=== PATIENT | female | born 1965 | race Caucasian/White ===

== ENCOUNTER 2016-08-16 16:22 | Emergency (ER) | payer OTHER ==
[2016-08-16 16:27] VITALS: BP 128/70; BMI 24.4
--- NOTE | 2016-08-16 16:58 | ED.ABDFE ---
HPI - Time seen Time seen: 16:50 - PCP Primary Care Physician: FEDERICO - Complaint Chief Complaint:: PT. C/O RLQ PAIN AND FEVER X 5 DAYS. PT. WAS SEEN AT [facility] LAST NIGHT FOR SAME C/O AND WAS DIAGNOSED WITH A UTI AND OVARIAN CYST. Patient has not gotten medication prescribed - Source History Provided: Patient - Mode of arrival Mode of Arrival: Ambulatory - Timing Onset of Chief Complaint: 08/11/16 PMH - PMH Past Medical History: Yes Past Medical History: Kidney Stones Past Surgical History: Yes Surgical History: Ortho Surgery - Family History History of Family Medical Conditions: No - Social History Does patient currently use any type of tobacco product: Yes Have you used tobacco products in the last 12 months: Yes Type of Tobacco Use: Cigarettes Does any household member use tobacco: No Alcohol Use: None Do you use any recreational Drugs:: No Lives With: Alone Lives Where: Home - infectious screening In the last 2 months have you had wt loss of >10#?: NO Have you had fever, night sweats or hemotysis?: No Have you traveled outside the country in the last 6 months?: No Isolation: Standard ROS - Review of Systems Eyes: No Symptoms Reported ENTM: No Symptoms Reported Respiratoy: No Symptoms Reported Cardiovascular: No Symptoms Reported Gastrointestinal/Abdominal: Abdominal Pain Genitourinary: No Symptoms Reported, See HPI Neurological: No Symptoms Reported Musculoskeletal: No Symptoms Reported Integumentary: No Symptoms Reported Hematologic/Lymphatic: No Symptoms Reported Endocrine: No Symptoms Reported Psychiatric: No Symptoms Reported All Other Systems: Reviewed and Negative PE - Vital Signs Vitals: Temperature 97.8 F Pulse Rate 85 Respiratory Rate 18 Blood Pressure 128/70 O2 Sat by Pulse Oximetry 98 - General Limitations: No Limitations General Appearance: Alert, In No Apparent Distress - Head Head Exam: Normal Inspection, Atraumatic - Eyes Eye exam: Normal Appearance, PERRL, EOMI - ENT ENT Exam: Normal Exam - Neck Neck Exam: Normal Inspection, Full ROM - Chest Chest Inspection: Normal Inspection - Respiratory Respiratory Exam: Normal Lung Sounds Bilat Respiratory Exam: Bilateral Clear to Auscultation - Cardiovascular Cardiovascular Exam: Regular Rate, Normal Rhythm - Abdominal Exam Abdominal Exam: Normal Inspection, Tenderness (RLQ) Abdominal Tenderness: Suprapubic (pain) - Rectal Rectal Exam: Deferred - Back Back Exam: Normal Inspection, Tenderness, (R) CVA Tenderness - Extremeties Extremities Exam: Normal Inspection - External Exam: Female: Normal External Exam : Speculum Exam (Female): Normal Speculum Exam : Bimanual Exam (female): Normal Bimanual exam - Neurologic Neurological Exam: Alert, Oriented X3, CN II-XII Intact - Psychiatric Psychiatric Exam: Normal Affect - Skin Skin Exam: Warm, Dry, Intact ROR - Labs Reviewed Laboratory Results Reviewed?: Yes (UA:wbc 25-30, Rbc: 10-15, Leuk 3+) Laboratory: Specimen Type Clean catch urine 08/16/16 17:02 Urine Color Yellow (YELLOW) 08/16/16 17:02 Urine Appearance Hazy (CLEAR) 08/16/16 17:02 Urine pH 6.0 (5.0 - 8.0) 08/16/16 17:02 Ur Specific [place] 1.020 (1.000-1.030) 08/16/16 17:02 Urine Protein 3+ (NEGATIVE) 08/16/16 17:02 Urine Glucose (UA) Negative (NEGATIVE) 08/16/16 17:02 Urine Ketones Negative (NEGATIVE) 08/16/16 17:02 Urine Occult Blood 2+ (NEGATIVE) 08/16/16 17:02 Urine Nitrite Negative (NEGATIVE) 08/16/16 17:02 Urine Bilirubin Negative (NEGATIVE) 08/16/16 17:02 Urine Urobilinogen 2+ (NORMAL) 08/16/16 17:02 Ur Leukocyte Esterase 3+ (NEGATIVE) 08/16/16 17:02 Urine RBC 10-15 /HPF (NEGATIVE) 08/16/16 17:02 Urine WBC 25-30 /HPF (NEGATIVE) 08/16/16 17:02 Ur Squamous Epith Cells Rare /HPF (NEGATIVE) 08/16/16 17:02 Urine Bacteria 1+ /HPF (NEGATIVE) 08/16/16 17:02 Ur Culture Indicated? Yes/culture set up 08/16/16 17:02 - Diagnosis Discharge Problem: UTI (urinary tract infection) Qualifiers: Urinary tract infection type: acute cystitis Hematuria presence: with hematuria Qualified Code(s): N30.01 - Acute cystitis with hematuria - Discharge Plan Condition: Stable - Follow ups/Referrals Follow ups/Referrals: NFD,None [Primary Care Provider] - 3 days - Instructions
[2016-08-16 17:08] LABS: BILIRUBIN,URINE NEGATIVE (NEGATIVE); BLOOD/HEMOGLOBIN,URINE 2+ (NEGATIVE); GLUCOSE, URINE NEGATIVE (NEGATIVE); KETONES,URINE NEGATIVE (NEGATIVE); LEUKOCYTE ESTERASE ,URINE 3+ (NEGATIVE); NITRITES,URINE NEGATIVE (NEGATIVE); PROTEIN,URINE 3+ (NEGATIVE); UROBILINOGEN,URINE 2+ (NORMAL)
[2016-08-16 17:24] LABS: APPEARANCE,URINE HAZY (CLEAR); COLOR,URINE YELLOW (YELLOW)
[2016-08-16 17:25] LABS: BACTERIA,URINE 1+ /HPF (NEGATIVE); SQUAMOUS EPITHELIAL CELL,UR RARE /HPF (NEGATIVE)
[2016-08-16] MEDS ORDERED: CIPRO IV 400 MG PREMIX* 400 MG/200 ML IV.SOLN. IV ONE ×2 (18:10→18:12)
[2016-08-16] MEDS ORDERED: TORADOL 30 MG VIAL IVP ONE (18:12)
[2016-08-16] MEDS ORDERED: TORADOL 30 MG VIAL ONE (18:31)
[2016-08-16 18:58] LABS: ALANINE AMINOTRANSFERASE 27 Units/L (12-78); ALBUMIN 2.6 g/dL (3.4-5.0); ALKALINE PHOSPHATASE 91 Units/L (46-116); ASPARTATE AMINO TRANSFERASE 14 Units/L (15-37); BLOOD UREA NITROGEN 10 mg/dL (7-18); CALCIUM 8.6 mg/dL (8.5-10.1); CARBON DIOXIDE 26.7 mmol/L (21-32); CHLORIDE 107 mmol/L (98-107); COR CA(FOR HYPOALB) 9.7 mg/dL (8.5-10.1); CREATININE 0.85 mg/dL (0.55-1.02); GLUCOSE 97 mg/dL (65-99); SODIUM 142 mmol/L (136-145); eGFR BLACK RACES > 60 (>60); eGFR NON BLACK RACES > 60 (>60)
[2016-08-16 19:15] LABS: BASOPHILS % (AUTO) 0.6 % (0.2-1.0); EOSINOPHILS # (AUTO) 0.2 x10^3/uL (0.0-0.2); EOSINOPHILS % (AUTO) 3.2 % (0.9-2.9); HEMATOCRIT 31.2 % (36.0-47.0); HEMOGLOBIN 10.8 g/dL (12.0-16.0); LYMPHOCYTES # (AUTO) 1.4 X10^3/uL (1.3-2.9); LYMPHOCYTES % (AUTO) 19.6 % (21.0-51.0); MEAN CORPUSCULAR HEMOGLOBIN 30.3 pg (27.0-34.0); MEAN CORPUSCULAR HGB CONC 34.7 g/dL (33.0-35.0); MEAN CORPUSCULAR VOLUME 87.4 fL (80.0-100.0); MEAN PLATELET VOLUME 7.3 fL (7.4-11.0); MONOCYTES # (AUTO) 0.4 x10^3/uL (0.3-0.8); MONOCYTES % (AUTO) 5.6 % (0.0-13.0); NEUTROPHILS # (AUTO) 5.1 x10^3/uL (2.2-4.8); PLATELET COUNT 165 X10^3/uL (150.0-450.0); RED BLOOD COUNT 3.56 X10^6/uL (3.5-5.4); WHITE BLOOD COUNT 7.1 X10^3/uL (3.6-10.0)
== END 2016-08-16 19:31 | disposition home or self-care (01) ==
LOC: ER 16:32
DX: N30.01 Acute cystitis with hematuria (principal)
CPT/HCPCS: 36415; 80053; 81001; 85025; 86140; 87086; 96365; 96374; 96375; 99282; 99283; A4222; J0744; J1885

== ENCOUNTER 2016-10-23 14:36 | Emergency (ER) | payer OTHER ==
[2016-10-23 14:42] VITALS: BMI 25.7
[2016-10-23] MEDS ORDERED: NS 1000 ML 1,000 ML ONE (15:05)
[2016-10-23] MEDS ORDERED: TORADOL 30 MG VIAL ONE (15:10)
--- NOTE | 2016-10-23 15:10 | DR.GENAD ---
HPI - PCP Primary Care Physician: LUIS M - Complaint/Symptoms Chief Complaint:: PT C/O FEVER, BODY ACHES, AND C/C/C. PT STATES HER SYMPTOMS STARTED YESTERDAY. PT STATES HER FEVER HAS BEEN UP TO 103. PT ALSO STATES HER KIDNEYS HAVE BEEN ACTING UP. Self Treatment fo Chief Complaint: MOTRIN 30 MINS AGO, ASA 1 HOUR AGO - Source History Provided: Patient - Mode of Arrival Mode of Arrival: Ambulatory - Timing Onset of Chief Complaint: 10/22/16 PMH - PMH Past Medical History: Yes Past Medical History: Kidney Stones Past Surgical History: Yes Surgical History: Ortho Surgery Past Surgical History Comment: NECK, SHOULDER - Family History History of Family Medical Conditions: No - Social History Does patient currently use any type of tobacco product: Yes Have you used tobacco products in the last 12 months: Yes Type of Tobacco Use: Cigarettes Does any household member use tobacco: Yes Alcohol Use: None Do you use any recreational Drugs:: No Lives With: Family Lives Where: Home - infectious screening In the last 2 months have you had wt loss of >10#?: NO Have you had fever, night sweats or hemotysis?: No Have you traveled outside the country in the last 6 months?: No Isolation: Standard ROS - Review of Systems Constitutional: No Symptoms Reported Eyes: No Symptoms Reported ENTM: No Symptoms Reported Respiratoy: No Symptoms Reported Cardiovascular: No Symptoms Reported Gastrointestinal/Abdominal: No Symptoms Reported Genitourinary: No Symptoms Reported Neurological: No Symptoms Reported Musculoskeletal: No Symptoms Reported Integumentary: No Symptoms Reported Hematologic/Lymphatic: No Symptoms Reported Endocrine: No Symptoms Reported Psychiatric: No Symptoms Reported PE - Vital Signs Vitals: Temperature 101.7 F Pulse Rate [Right Radial] 91 Pulse Rate 111 Respiratory Rate 20 Blood Pressure [Left Arm] 140/73 Blood Pressure 153/91 O2 Sat by Pulse Oximetry 97 - General General Appearance: Alert, In No Apparent Distress, Appears Intoxicated - Head Head Exam: Normal Inspection, Atraumatic - Eyes Eye exam: Normal Appearance, PERRL, EOMI - ENT ENT Exam: Normal Exam External Ear Exam: Normal External Inspection TM/Canal Exam: Bilateral Normal Nose Exam: Normal Nose Exam Mouth Exam: Normal Inspection Throat Exam: Normal Inspection, Tonsillar Erythema - Neck Neck Exam: Normal Inspection, Full ROM - Chest Chest Inspection: Normal Inspection - Respiratory Respiratory Exam: Normal Lung Sounds Bilat Respiratory Exam: Bilateral Clear to Auscultation - Cardiovascular Cardiovascular Exam: Regular Rate, Normal Rhythm - Abdominal Exam Abdominal Exam: Normal Inspection, Normal Bowel Sounds Abdominal Tenderness: negative: RUQ, RLQ, LUQ, LLQ, Epigastrium, Suprapubic, Diffuse, Mild, Moderate, Severe, Other - Extremities Extremities Exam: Normal Inspection, Full ROM - Back Back Exam: Normal Inspection - Neurologic Neurological Exam: Alert, Oriented X3, CN II-XII Intact - Psychiatric Psychiatric Exam: Normal Affect, Normal Mood - Skin Skin Exam: Warm, Dry, Intact Course - Treatment Treatment: Cipro 400mg IV, NS - Reevaluation 1st: Improved ROR - Labs Reviewed Laboratory Results Reviewed?: Yes (UA: Nitrite positive, Leukocyte esterace 3+, WBC 30--40) Result Diagrams: 10/23/16 15:21 10/23/16 15:21 Laboratory: WBC 7.0 X10^3/uL (3.6-10.0) 10/23/16 15: RBC 4.70 X10^6/uL (3.5-5.4) 10/23/16 15:21 Hgb 13.9 g/dL (12.0-16.0) 10/23/16 15:21 Hct 39.8 % (36.0-47.0) 10/23/16 15:21 MCV 84.7 fL (80.0-100.0) 10/23/16 15:21 MCH 29.5 pg (27.0-34.0) 10/23/16 15:21 MCHC 34.9 g/dL (33.0-35.0) 10/23/16 15:21 RDW 14.1 % (11.6-16.5) 10/23/16 15:21 Plt Count 129 X10^3/uL (150.0-450.0) L 10/23/16 15:21 MPV 7.6 fL (7.4-11.0) 10/23/16 15: Neut % 84.2 % (42.0-75.0) H 10/23/16 15:21 Lymph % 7.7 % (21.0-51.0) L 10/23/16 15: [place] % 7.0 % (0.0-13.0) 10/23/16 15:21 Eos % 0.8 % (0.9-2.9) L 10/23/16 15:21 Baso % 0.3 % (0.2-1.0) 10/23/16 15:21 Neut # 5.9 x10^3/uL (2.2-4.8) H 10/23/16 15:21 Lymph # 0.5 X10^3/uL (1.3-2.9) L 10/23/16 15:21 [place] # 0.5 x10^3/uL (0.3-0.8) 10/23/16 15:21 Eos # 0.1 x10^3/uL (0.0-0.2) 10/23/16 15:21 Baso # 0.0 X10^3/uL (0.0-0.1) 10/23/16 15:21 Absolute Nucleated RBC 0.0 /100WBC 10/23/16 15:21 Sodium 135 mmol/L (136-145) L 10/23/16 15:21 Corrected Sodium TNP 10/23/16 15:21 Potassium 4.3 mmol/L (3.5-5.1) 10/23/16 15:21 Chloride 101 mmol/L (98-107) 10/23/16 15:21 Carbon Dioxide 24.7 mmol/L (21-32) 10/23/16 15:21 BUN 12 mg/dL (7-18) 10/23/16 15:21 Creatinine 0.96 mg/dL (0.55-1.02) 10/23/16 15:21 Est GFR (MDRD) Af Amer > 60 (>60) 10/23/16 15:21 Est GFR (MDRD) Non-Af > 60 (>60) 10/23/16 15:21 Glucose 106 mg/dL (65-99) H 10/23/16 15:21 Calcium 9.5 mg/dL (8.5-10.1) 10/23/16 15:21 Corrected Calcium TNP 10/23/16 15:21 Total Bilirubin 0.70 mg/dL (0.2-1.0) 10/23/16 15:21 AST 34 Units/L (15-37) 10/23/16 15:21 ALT 49 Units/L (12-78) 10/23/16 15:21 Alkaline Phosphatase 94 Units/L (46-116) 10/23/16 15:21 Total Protein 7.8 g/dL (6.4-8.2) 10/23/16 15:21 Albumin 3.6 g/dL (3.4-5.0) 10/23/16 15:21 Globulin 4.2 g/dL (2.5-4.5) 10/23/16 15:21 Albumin/Globulin Ratio 0.9 Ratio (1.1-2.1) L 10/23/16 15:21 Specimen Type Clean catch urine 10/23/16 15:24 Urine Color Yellow (YELLOW) 10/23/16 15:24 Urine Appearance Cloudy (CLEAR) 10/23/16 15:24 Urine pH 6.5 (5.0 - 8.0) 10/23/16 15:24 Ur Specific [place] 1.005 (1.000-1.030) 10/23/16 15:24 Urine Protein 2+ (NEGATIVE) 10/23/16 15:24 Urine Glucose (UA) Negative (NEGATIVE) 10/23/16 15:24 Urine Ketones Negative (NEGATIVE) 10/23/16 15:24 Urine Occult Blood 2+ (NEGATIVE) 10/23/16 15:24 Urine Nitrite Positive (NEGATIVE) 10/23/16 15:24 Urine Bilirubin Negative (NEGATIVE) 10/23/16 15:24 Urine Urobilinogen Normal (NORMAL) 10/23/16 15:24 Ur Leukocyte Esterase 3+ (NEGATIVE) 10/23/16 15:24 Urine RBC Rare /HPF (NEGATIVE) 10/23/16 15:24 Urine WBC 30 - 40 with clumps /HPF (NEGATIVE) 10/23/16 15:24 Ur Squamous Epith Cells Many /HPF (NEGATIVE) 10/23/16 15:24 Amorphous Sediment 1+ /HPF (NEGATIVE) 10/23/16 15:24 Urine Bacteria 2+ /HPF (NEGATIVE) 10/23/16 15:24 Ur Culture Indicated? Yes/culture set up 10/23/16 15:24 - Diagnosis Discharge Problem: UTI (urinary tract infection) Qualifiers: Urinary tract infection type: acute cystitis Hematuria presence: with hematuria Qualified Code(s): N30.01 - Acute cystitis with hematuria - Discharge Plan Condition: Stable - Follow ups/Referrals Follow ups/Referrals: JOHNNY GRACE [Primary Care Provider] - 3 days - Instructions
[2016-10-23] MEDS ORDERED: NS 1000 ML 1,000 ML IV ONE (15:11)
[2016-10-23] MEDS ORDERED: TORADOL 30 MG VIAL IVP ONE (15:13)
[2016-10-23 15:32] LABS: BASOPHILS % (AUTO) 0.3 % (0.2-1.0); EOSINOPHILS # (AUTO) 0.1 x10^3/uL (0.0-0.2); EOSINOPHILS % (AUTO) 0.8 % (0.9-2.9); HEMATOCRIT 39.8 % (36.0-47.0); HEMOGLOBIN 13.9 g/dL (12.0-16.0); LYMPHOCYTES # (AUTO) 0.5 X10^3/uL (1.3-2.9); LYMPHOCYTES % (AUTO) 7.7 % (21.0-51.0); MEAN CORPUSCULAR HEMOGLOBIN 29.5 pg (27.0-34.0); MEAN CORPUSCULAR HGB CONC 34.9 g/dL (33.0-35.0); MEAN CORPUSCULAR VOLUME 84.7 fL (80.0-100.0); MEAN PLATELET VOLUME 7.6 fL (7.4-11.0); MONOCYTES # (AUTO) 0.5 x10^3/uL (0.3-0.8); NEUTROPHILS # (AUTO) 5.9 x10^3/uL (2.2-4.8); NEUTROPHILS % (AUTO) 84.2 % (42.0-75.0); PLATELET COUNT 129 X10^3/uL (150.0-450.0); RED CELL DISTRIBUTION WIDTH 14.1 % (11.6-16.5)
[2016-10-23 15:40] LABS: BILIRUBIN,URINE NEGATIVE (NEGATIVE); BLOOD/HEMOGLOBIN,URINE 2+ (NEGATIVE); GLUCOSE, URINE NEGATIVE (NEGATIVE); KETONES,URINE NEGATIVE (NEGATIVE); LEUKOCYTE ESTERASE ,URINE 3+ (NEGATIVE); NITRITES,URINE POSITIVE (NEGATIVE); PH,URINE 6.5 (5.0 - 8.0); PROTEIN,URINE 2+ (NEGATIVE); UROBILINOGEN,URINE NORMAL (NORMAL)
[2016-10-23 15:42] LABS: ALANINE AMINOTRANSFERASE 49 Units/L (12-78); ALBUMIN 3.6 g/dL (3.4-5.0); ALKALINE PHOSPHATASE 94 Units/L (46-116); ASPARTATE AMINO TRANSFERASE 34 Units/L (15-37); BLOOD UREA NITROGEN 12 mg/dL (7-18); CALCIUM 9.5 mg/dL (8.5-10.1); CARBON DIOXIDE 24.7 mmol/L (21-32); CHLORIDE 101 mmol/L (98-107); CREATININE 0.96 mg/dL (0.55-1.02); GLUCOSE 106 mg/dL (65-99); SODIUM 135 mmol/L (136-145); TOTAL PROTEIN 7.8 g/dL (6.4-8.2); eGFR NON BLACK RACES > 60 (>60)
--- NOTE | 2016-10-23 15:45 | RAD ---
HISTORY: Fever. Study: Portable chest. Comparison: None. Findings: The trachea is midline. The cardiac silhouette is unremarkable. The lungs are clear without focal i nfiltrate or effusion. Partially visualized cervical hardware. The osseous structures are otherwise unremarkable for age. IMPRESSION: 1. No acute cardiopulmonary disease. Reported By:
[2016-10-23 15:51] LABS: eGFR BLACK RACES > 60 (>60)
[2016-10-23 15:52] LABS: APPEARANCE,URINE CLOUDY (CLEAR); COLOR,URINE YELLOW (YELLOW)
[2016-10-23 16:00] LABS: AMORPHOUS SEDIMENT,UR 1+ /HPF (NEGATIVE); BACTERIA,URINE 2+ /HPF (NEGATIVE); RBC,URINE RARE /HPF (NEGATIVE); SQUAMOUS EPITHELIAL CELL,UR MANY /HPF (NEGATIVE)
[2016-10-23] MEDS ORDERED: CIPRO IV 400 MG PREMIX* 400 MG/200 ML IV.SOLN. IV ONE ×2 (16:26→16:28)
[2016-10-23 16:33] VITALS: BP 140/73
== END 2016-10-23 18:21 | disposition home or self-care (01) ==
LOC: ER 14:46
DX: N30.01 Acute cystitis with hematuria (principal); B96.29 Other Escherichia coli [E. coli] as the cause of diseases classified elsewhere
CPT/HCPCS: 36415; 71010; 80053; 81001; 85025; 87086; 87088; 87186; 87502; 87503; 96365; 96374; 96375; 99283; A4222; J0744; J1885

== ENCOUNTER 2016-11-30 00:51 | Emergency (ER) | payer OTHER ==
[2016-11-30 00:59] VITALS: BP 128/72; BMI 24.7
--- NOTE | 2016-11-30 01:20 | DR.GENAD ---
HPI - PCP Primary Care Physician: - HPI Comment HPI Comment: PATIENT HAD SMALL PUSTULE IN RT NOSE. SHE POP IT AND NOW RED AND SWOLLEN. - Complaint/Symptoms Chief Complaint Doctors Comments: ABSCESS AND CELLULITIS RIGHT NOSTRIL. NO DRAINAGE. NO FEVER. Chief Complaint:: "I HAD A SORE IN MY NOSE ABOUT 3 DAYS AGO , I POPPED IT AND NOW MY WHOLE NOSTRIL IS SORE." - Nurses notes reviewed Nurses Notes Review: Yes - Source History Provided: Patient - Mode of Arrival Mode of Arrival: Ambulatory - Timing Onset of Chief Complaint: 11/26/16 Came on: Suddenly - Duration Duration: Constant Duration: Days - Severity Severity: Moderate PMH - PMH Past Medical History: Yes Past Medical History: Kidney Stones Past Surgical History: Yes Surgical History: Ortho Surgery Past Surgical History Comment: NECK, RIGHT SHOULDER, RIGHT HAND TIMES TWO, LEFT HAND - Family History History of Family Medical Conditions: No - Social History Type of Tobacco Use: Cigarettes Alcohol Use: None Do you use any recreational Drugs:: No Lives With: Alone Lives Where: Home - infectious screening Have you traveled outside the country in the last 6 months?: No Isolation: Standard ROS - Review of Systems Constitutional: No Symptoms Reported. negative: Chills, Fever, Weakness Eyes: No Symptoms Reported ENTM: Nose Congestion. negative: Ear Pain, Nose Discharge Respiratoy: Non-Productive Cough, Short of Breath, Wheezing. negative: Hemoptysis Cardiovascular: Chest Pain Gastrointestinal/Abdominal: No Symptoms Reported Genitourinary: No Symptoms Reported. negative: Dysuria, Frequency, Hematuria Neurological: No Symptoms Reported Musculoskeletal: No Symptoms Reported Integumentary: Other (ABSCESS, CELLULITIS RT NOSTRIL.) Hematologic/Lymphatic: No Symptoms Reported Endocrine: No Symptoms Reported All Other Systems: Reviewed and Negative PE - Vital Signs Vitals: Temperature 97.7 F Pulse Rate 88 Respiratory Rate 16 Blood Pressure [Left Arm] 140/73 Blood Pressure 128/72 O2 Sat by Pulse Oximetry 99 - General Limitations: No Limitations General Appearance: Alert - Head Head Exam: Normal Inspection - Eyes Eye exam: Normal Appearance - ENT ENT Exam: Normal Oropharynx, Normal External Ear Exam, TM's Normal Bilaterally , Other (RIGHT NOSTRIL SWOLLEN AND RED. RT NASAL PASSAGE SWOLLEN WITH FIRM NODULE PEANUT SIZE ON LATERAL OF RIGHT NASAL PASAGE,) External Ear Exam: Normal External Inspection TM/Canal Exam: Bilateral Normal Nose Exam: Normal Nose Exam, Other (ABSCESS AND CELLULITIS RT NASAL PASSAGE.) Mouth Exam: Normal Inspection Throat Exam: Normal Inspection - Neck Neck Exam: Trachea Midline - Chest Chest Inspection: Symmetric Chest Wall Rise - Respiratory Respiratory Exam: Normal Lung Sounds Bilat Respiratory Exam: Bilateral Clear to Auscultation - Cardiovascular Cardiovascular Exam: Regular Rate, Normal Rhythm, Normal Heart Sounds - Abdominal Exam Abdominal Exam: Normal Bowel Sounds, Soft. negative: Tenderness - Extremities Extremities Exam: Normal Inspection - Back Back Exam: Normal Inspection - Neurologic Neurological Exam: Alert, Oriented X3 - Psychiatric Psychiatric Exam: Normal Affect, Normal Mood - Skin Skin Exam: Normal Color MDM - Differential Diagnosis Differential Diagnosis: CELLULITIS RIGHT NOSTRIL, ABSCESS RIGHT NASAL PASSAGE. Course - Treatment Treatment: SEE ODERS - Education/Counseling Education/Counseling: Patient, Education Educated On: Diagnosis ROR - Labs Reviewed Laboratory: 11/30/16 01:38 Nasal Swab Gram Stain - Final - Diagnosis Discharge Problem: Cellulitis, Abscess - Discharge Plan Disposition: HOME, SELF-CARE Condition: Stable Prescriptions: Clindamycin HCl 300 mg PO Q6H #40 cap Mupirocin Calcium [Bactroban Nasal 2 %] 1 applic NA BID #1 gm - Follow ups/Referrals Follow ups/Referrals: NFD,None [Primary Care Provider] - 3 days - Instructions Instructions: Abscess, [id number], Cellulitis, Adult, [id number] Additional Instructions: RETURN TO ED IF WORSE.
[2016-11-30] MEDS ORDERED: BACTROBAN OINT TOP ONE (01:44)
[2016-11-30] MEDS ORDERED: BACITRACIN ZINC ONE (01:46)
== END 2016-11-30 01:48 | disposition home or self-care (01) ==
LOC: ER 00:51
DX: J34.0 Abscess, furuncle and carbuncle of nose (principal); B95.62 Methicillin resistant Staphylococcus aureus infection as the cause of diseases classified elsewhere
CPT/HCPCS: 87070; 87075; 87077; 87186; 87205; 99282

== ENCOUNTER 2017-01-11 02:57 | Emergency (ER) | payer OTHER ==
[2017-01-11 03:10] VITALS: BP 124/69; BMI 25.7
--- NOTE | 2017-01-11 03:17 | DR.GENAD ---
HPI - Complaint/Symptoms Chief Complaint:: pt states" my shoulder been hurting for 2 weeks i lifted my arm and i heard a loud pop, and my back hurts all the way around to my pelvis. I know i got some back problems but something is happening" Self Treatment fo Chief Complaint: pt states" my medications are not helping i took a lorcet xanax and a soma 4 hours ago but i woke up still hurting worse than i was before i took the medicine" - Source History Provided: Patient - Mode of Arrival Mode of Arrival: Ambulatory - Timing Onset of Chief Complaint: 12/28/16 PMH - PMH Past Medical History: Yes Past Medical History: Kidney Stones Past Medical History Comment: chronic back pain Past Surgical History: Yes Surgical History: Ortho Surgery Past Surgical History Comment: neck, rt shoulder, rt hand lt hand - Family History History of Family Medical Conditions: No - Social History Type of Tobacco Use: Cigarettes Does any household member use tobacco: Yes Alcohol Use: None Do you use any recreational Drugs:: No Lives With: Family Lives Where: Home - infectious screening In the last 2 months have you had wt loss of >10#?: NO Have you had fever, night sweats or hemotysis?: No Have you traveled outside the country in the last 6 months?: No Isolation: Standard ROS - Review of Systems Eyes: No Symptoms Reported ENTM: No Symptoms Reported Respiratoy: No Symptoms Reported Cardiovascular: No Symptoms Reported Gastrointestinal/Abdominal: No Symptoms Reported Genitourinary: No Symptoms Reported Neurological: No Symptoms Reported Musculoskeletal: Shoulder (left) Integumentary: No Symptoms Reported Hematologic/Lymphatic: No Symptoms Reported Endocrine: No Symptoms Reported Psychiatric: No Symptoms Reported All Other Systems: Reviewed and Negative PE - Vital Signs Vitals: Temperature 98.3 F Pulse Rate 80 Respiratory Rate 18 Blood Pressure [Left Arm] 140/73 Blood Pressure 124/69 O2 Sat by Pulse Oximetry 100 - General General Appearance: Alert, In No Apparent Distress - Head Head Exam: Normal Inspection, Atraumatic - Eyes Eye exam: Normal Appearance, PERRL, EOMI - ENT ENT Exam: Normal Exam External Ear Exam: Normal External Inspection TM/Canal Exam: Bilateral Normal Nose Exam: Normal Nose Exam Mouth Exam: Normal Inspection Throat Exam: Normal Inspection - Neck Neck Exam: Normal Inspection, Full ROM - Chest Chest Inspection: Normal Inspection, Symmetric Chest Wall Rise - Respiratory Respiratory Exam: Normal Lung Sounds Bilat Respiratory Exam: Bilateral Clear to Auscultation - Cardiovascular Cardiovascular Exam: Regular Rate - Abdominal Exam Abdominal Exam: Normal Inspection Abdominal Tenderness: negative: RUQ, RLQ, LUQ, LLQ, Epigastrium, Suprapubic, Diffuse, Mild, Moderate, Severe, Other - Extremities Extremities Exam: Normal Inspection, Tenderness (left shoulder) - Back Back Exam: Normal Inspection (lumbar tenderness), Tenderness - Neurologic Neurological Exam: Alert, Oriented X3, CN II-XII Intact ROR - XRAY XRAY Interpreted by: Radiologist (Shoulder:AC joint demonstrates mild degenerative change. Glenohumeral joint is maintained. There is subcortical cyst formation and degenerative change of the humeral head footplate suggesting chronic rotator cuff tendinitis/tearing. No localizing soft tissue swelling. Impression: No acute radiographic abnormality within the left shoulder. Degenerative findings as discussed .) - Diagnosis Discharge Problem: Degenerative joint disease of acromioclavicular joint Rotator cuff tendinitis Qualifiers: Laterality: left Qualified Code(s): M75.82 - Other shoulder lesions, left shoulder - Discharge Plan Condition: Stable - Follow ups/Referrals Follow ups/Referrals: NFD,None [Primary Care Provider] - 3 days - Instructions
[2017-01-11] MEDS ORDERED: TORADOL 60 MG VIAL IM ONE (03:19)
[2017-01-11] MEDS ORDERED: TORADOL 60 MG VIAL ONE (03:21)
--- NOTE | 2017-01-11 04:00 | RAD ---
Three views of the left shoulder Indication: Shoulder pain for 2 months Findings: There is no acute fracture or dislocation within the left shoulder. AC joint demonstrates m ild degenerative change. Glenohumeral joint is maintained. There is subcortical cyst formation and de generative change of the humeral head footplate suggesting chronic rotator cuff tendinitis /tearing. No localizing soft tissue swelling. Impression: 1.No acute radiographic abnormality within the left shoulder. 2. Degenerative findings as discussed above. Reported By:
== END 2017-01-11 04:19 | disposition home or self-care (01) ==
LOC: ER 02:57
DX: M19.019 Primary osteoarthritis, unspecified shoulder (principal); M75.82 Other shoulder lesions, left shoulder
CPT/HCPCS: 73030; 96372; 99282; J1885

== ENCOUNTER → 2017-01-15 | Outpatient (CLI) | payer OTHER ==
[2017-01-11 03:10] VITALS: BP 124/69
--- NOTE | 2017-01-15 12:51 | RAD ---
Examination: Left shoulder, three views History: Pain Comparison reference 01/11/2017. Findings: There is no evidence for fracture, dislocation or pathologic calcification. There is mild a cromioclavicular joint degenerative change. The humeral head is in normal position. Impression: No acute process identified. Mild degenerative changes. Reported By:
--- NOTE | 2017-01-15 12:53 | RAD ---
Examination: Lumbar spine, five views History: Low back pain Findings: There is degenerative disc space narrowing with slight anterior listhesis at L4-5. No fract ure or bone destruction is noted. The upper lumbar vertebrae are normal. Pedicles and sacroiliac join ts intact. There is an IUD in the center of the pelvis. Impression: 1. Degenerative disc disease at L4-5. Associated malalignment is consistent with apophyseal facet art hropathy at this level 2. IUD as described. 3. Excessive colon feces consistent with constipation. Reported By:
== END ==
LOC: RAD 12:11
PROVIDERS: ATTEND Specialist
DX: M54.89 Other dorsalgia (principal); M51.36 Other intervertebral disc degeneration, lumbar region
CPT/HCPCS: 72110; 73030

== ENCOUNTER 2017-02-23 18:37 | Emergency (ER) | payer MEDICAID, OTHER ==
[2017-02-23 18:49] VITALS: BP 143/76; BMI 25.7
--- NOTE | 2017-02-23 21:15 | DR.GENAD ---
HPI - PCP Primary Care Physician: adrián - Complaint/Symptoms Chief Complaint:: pt has bruise to lt upper arm pt states" i was picking up pecans and my arm popped then when i took a shower i seen the bruise i'm scaed i may have a blood clot or either the cyst in my shouler ruptured" - Nurses notes reviewed Nurses Notes Review: Yes - Source History Provided: Patient - Mode of Arrival Mode of Arrival: Ambulatory - Timing Onset of Chief Complaint: 02/22/17 PMH - PMH Past Medical History: Yes Past Medical History: Kidney Stones Past Surgical History: Yes Surgical History: Ortho Surgery - Family History History of Family Medical Conditions: Yes Family Medical History: Diabetes Mellitus - Social History Does any household member use tobacco: Yes Alcohol Use: None Do you use any recreational Drugs:: No Lives With: Family Lives Where: Home - infectious screening In the last 2 months have you had wt loss of >10#?: NO Have you had fever, night sweats or hemotysis?: No Have you traveled outside the country in the last 6 months?: No Isolation: Standard PE - Vital Signs Vitals: Temperature 98 F Pulse Rate 72 Respiratory Rate 18 Blood Pressure [Left Arm] 140/73 Blood Pressure 143/76 O2 Sat by Pulse Oximetry 97 ROR - Labs Reviewed Result Diagrams: 02/23/17 21:28 02/23/17 21:28 Laboratory: WBC 5.7 X10^3/uL (3.6-10.0) 02/23/17 21:28 RBC 4.65 X10^6/uL (3.5-5.4) 02/23/17 21:28 Hgb 14.0 g/dL (12.0-16.0) 02/23/17 21:28 Hct 40.7 % (36.0-47.0) 02/23/17 21:28 MCV 87.5 fL (80.0-100.0) 02/23/17 21:28 MCH 30.2 pg (27.0-34.0) 02/23/17 21:28 MCHC 34.5 g/dL (33.0-35.0) 02/23/17 21:28 RDW 14.2 % (11.6-16.5) 02/23/17 21:28 Plt Count 157 X10^3/uL (150.0-450.0) 02/23/17 21:28 MPV 8.0 fL (7.4-11.0) 02/23/17 21: Neut % 56.0 % (42.0-75.0) 02/23/17 21: Lymph % 31.4 % (21.0-51.0) 02/23/17 21:28 [place] % 6.3 % (0.0-13.0) 02/23/17 21:28 Eos % 5.4 % (0.9-2.9) H 02/23/17 21:28 Baso % 0.9 % (0.2-1.0) 02/23/17 21: Neut # 3.2 x10^3/uL (2.2-4.8) 02/23/17 21: Lymph # 1.8 X10^3/uL (1.3-2.9) 02/23/17 21:28 [place] # 0.4 x10^3/uL (0.3-0.8) 02/23/17 21:28 Eos # 0.3 x10^3/uL (0.0-0.2) H 02/23/17 21:28 Baso # 0.0 X10^3/uL (0.0-0.1) 02/23/17 21:28 Absolute Nucleated RBC 0.0 /100WBC 02/23/17 21:28 INR Target Range - 02/23/17 21:28 INR 0.92 (0.8-1.3) 02/23/17 21:28 PTT 24.7 SECONDS (22.9-36.5) 02/23/17 21:28 PTT Comment - 02/23/17 21:28 Sodium 143 mmol/L (136-145) 02/23/17 21:28 Corrected Sodium TNP 02/23/17 21:28 Potassium 3.5 mmol/L (3.5-5.1) 02/23/17 21:28 Chloride 104 mmol/L (98-107) 02/23/17 21:28 Carbon Dioxide 31.9 mmol/L (21-32) 02/23/17 21:28 BUN 14 mg/dL (7-18) 02/23/17 21:28 Creatinine 1.04 mg/dL (0.55-1.02) H 02/23/17 21:28 Est GFR (MDRD) Af Amer > 60 (>60) 02/23/17 21:28 Est GFR (MDRD) Non-Af 59 (>60) 02/23/17 21:28 Glucose 91 mg/dL (65-99) 02/23/17 21:28 Calcium 9.0 mg/dL (8.5-10.1) 02/23/17 21:28 Corrected Calcium TNP 02/23/17 21:28 Total Bilirubin 0.20 mg/dL (0.2-1.0) 02/23/17 21:28 AST 22 Units/L (15-37) 02/23/17 21:28 ALT 53 Units/L (12-78) 02/23/17 21:28 Alkaline Phosphatase 120 Units/L (46-116) H 02/23/17 21:28 Total Protein 7.0 g/dL (6.4-8.2) 02/23/17 21:28 Albumin 3.6 g/dL (3.4-5.0) 02/23/17 21:28 Globulin 3.4 g/dL (2.5-4.5) 02/23/17 21:28 Albumin/Globulin Ratio 1.1 Ratio (1.1-2.1) 02/23/17 21:28 - Discharge Plan Disposition: 01 HOME, SELF-CARE Condition: Stable Prescriptions: Acetaminophen with Codeine [Tylenol/Codeine #3 300-30 mg] 1 tab PO Q6H PRN #15 tab PRN Reason: Pain - Follow ups/Referrals Follow ups/Referrals: NFD,None [Primary Care Provider] - 3 days NORMA REY [STAFF PHYSICIAN] - 3 days - Instructions Instructions: Musculoskeletal Pain, Hematoma Additional Instructions: RETURN TO ED IF WORSE.
[2017-02-23 21:44] LABS: BASOPHILS % (AUTO) 0.9 % (0.2-1.0); EOSINOPHILS # (AUTO) 0.3 x10^3/uL (0.0-0.2); EOSINOPHILS % (AUTO) 5.4 % (0.9-2.9); HEMATOCRIT 40.7 % (36.0-47.0); LYMPHOCYTES # (AUTO) 1.8 X10^3/uL (1.3-2.9); LYMPHOCYTES % (AUTO) 31.4 % (21.0-51.0); MEAN CORPUSCULAR HEMOGLOBIN 30.2 pg (27.0-34.0); MEAN CORPUSCULAR HGB CONC 34.5 g/dL (33.0-35.0); MEAN CORPUSCULAR VOLUME 87.5 fL (80.0-100.0); MONOCYTES # (AUTO) 0.4 x10^3/uL (0.3-0.8); MONOCYTES % (AUTO) 6.3 % (0.0-13.0); NEUTROPHILS # (AUTO) 3.2 x10^3/uL (2.2-4.8); PLATELET COUNT 157 X10^3/uL (150.0-450.0); RED BLOOD COUNT 4.65 X10^6/uL (3.5-5.4); RED CELL DISTRIBUTION WIDTH 14.2 % (11.6-16.5); WHITE BLOOD COUNT 5.7 X10^3/uL (3.6-10.0)
[2017-02-23] MEDS ORDERED: ZOFRAN INJ 4 MG VIAL IVP ONE (21:51)
[2017-02-23] MEDS ORDERED: MORPHINE SULFATE INJ 4 MG IVP ONE (21:51)
[2017-02-23] MEDS ORDERED: ZOFRAN INJ 4 MG VIAL ONE (21:58)
[2017-02-23] MEDS ORDERED: MORPHINE SULFATE INJ 4 MG ONE (21:58)
[2017-02-23 22:02] LABS: ALANINE AMINOTRANSFERASE 53 Units/L (12-78); ALBUMIN 3.6 g/dL (3.4-5.0); ALKALINE PHOSPHATASE 120 Units/L (46-116); ASPARTATE AMINO TRANSFERASE 22 Units/L (15-37); BLOOD UREA NITROGEN 14 mg/dL (7-18); CARBON DIOXIDE 31.9 mmol/L (21-32); CHLORIDE 104 mmol/L (98-107); CREATININE 1.04 mg/dL (0.55-1.02); SODIUM 143 mmol/L (136-145); eGFR BLACK RACES > 60 (>60); eGFR NON BLACK RACES 59 (>60)
--- NOTE | 2017-02-23 22:14 | VAS ---
Ultrasound left upper extremity venous Doppler ultrasound Indication: Bruising to the left upper arm Technique: Dynamic grayscale, color and spectral Doppler imaging through the left upper extremity vei ns. Findings: The left brachial vein throughout its length, l, left basilic vein, left axillary vein are patent and compressible with normal respiratory phasicity. Cephalic vein not visualized. The left jug ular and subclavian vein shows normal respiratory phasicity. Impression: No left upper extremity deep vein thrombosis. There is hypoechoic area in the mid arm sug gesting hematoma. Follow-up to resolution. Reported By:
== END 2017-02-23 22:53 | disposition home or self-care (01) ==
LOC: ER 18:52
DX: S40.022A Contusion of left upper arm, initial encounter (principal); M79.1 Myalgia; Y33.XXXA Other specified events, undetermined intent, initial encounter; Y92.9 Unspecified place or not applicable
CPT/HCPCS: 36415; 80053; 85025; 85610; 85730; 93971; 96372; 99282; 99283; J2270; J2405

== ENCOUNTER → 2017-03-16 | Outpatient (CLI) | payer OTHER ==
[2017-02-23 18:49] VITALS: BP 143/76
--- NOTE | 2017-03-16 16:39 | MRI ---
MRI SPINE LUMBAR WITHOUT CONTRAST CLINICAL HISTORY: 51-year-old female with chronic low back pain. COMPARISON: Radiographs of lumbar spine 01/15/2017. Technique: Multiplanar, multisequence MRI images of the lumbar spine were obtained without the admin istration of contrast. FINDINGS: The most caudad, fully-formed intervertebral disc will be labeled L5-S1 for the purpose of this dictation and in keeping with prior imaging. There is normal lumbar lordosis. Subtle degenerativ e anterolisthesis L4 on L5. Vertebral body height and marrow signal are preserved. Mild loss of disc space and signal L3-L5, remaining disc height signal are preserved. Cord signal is normal. The conus medullaris is normal in signal characteristics and morphology and terminates at the L1-2 level. T11-T12: No central canal or neural foraminal stenosis. Mild facet arthropathy. T12-L1: Mild symmetric disc bulge and moderate facet arthropathy without central canal or neural fora ayala stenosis. L1-L2: Moderate disc bulge and facet arthropathy without central canal or neural foraminal stenosis. L2-L3: Moderate symmetric disc bulge and facet arthropathy without central canal or neural foraminal stenosis. L3-L4: Large symmetric disc bulge with moderate facet arthropathy without central canal or neural for aminal stenosis. L4-L5: Large symmetric disc bulge with severe facet arthropathy and fluid within the facet joints wit h moderate to severe subarticular recess stenosis bilaterally and moderate bilateral neural foraminal stenosis. There is compressive flattening of the ventral dorsal aspect of the exiting L4 nerve roots bilaterally. L5-S1: Small symmetric disc bulge with a right central annular fissure with severe facet arthropathy without central canal or neural foraminal stenosis. Subcentimeter meningeal cyst at the level the roseline ral foramen bilaterally. Paraspinous soft tissues are unremarkable. IMPRESSION: 1. 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 2. See level by level descriptions above. Reported By:
== END ==
LOC: RAD 15:01
PROVIDERS: ATTEND Specialist
DX: M51.36 Other intervertebral disc degeneration, lumbar region (principal)
CPT/HCPCS: 72148